=== PATIENT | female | born 1995 | race Asian ===

== ENCOUNTER 2018-04-04 11:15 | Emergency (ER) | payer MEDICAID ==
[~2018-04-04] VITALS: Ht 152.4 cm; Wt 105.3 kg
[2018-04-04 12:13] LABS: ALANINE AMINOTRANSFERASE 30 U/L (12-78); ALBUMIN 3.8 G/DL (3.4-5.0); ALBUMIN/GLOBULIN RATIO 0.8 (1.1-1.5); ALKALINE PHOSPHATASE 95 IU/L (20-180); ANION GAP 10 (8-16); BILIRUBIN,TOTAL 0.6 MG/DL (0.1-1.0); BLOOD UREA NITROGEN 10 MG/DL (7-18); BUN/CREATININE RATIO 12.2 (6.6-38.0); CALCIUM 9.5 MG/DL (8.5-10.1); CHLORIDE 105 MMOL/L (99-107); CREATININE 0.82 MG/DL (0.40-0.90); GLUCOSE 93 MG/DL (70-104); SODIUM 141 MMOL/L (135-145); TOTAL CARBON DIOXIDE 26.4 MMOL/L (24-32); TOTAL PROTEIN 8.5 G/DL (6.4-8.2); eGFR 89 ML/MIN
[2018-04-04 12:22] LABS: ETHANOL < 0.010 GM/DL (0.0-0.010)
[2018-04-04 12:30] LABS: ASPARTATE AMINO TRANSFERASE 31 U/L (10-37); POTASSIUM 4.5 MMOL/L (3.5-5.1)
[2018-04-04 13:12] LABS: BASOPHILS % (AUTO) 0.1 % (0-1); EOSINOPHILS # (AUTO) 0.1 X10'3 (0-0.9); EOSINOPHILS % (AUTO) 1.3 % (0-6); HEMATOCRIT 42.4 % (35.0-45.0); HEMOGLOBIN 14.1 g/dl (12.0-16.0); LYMPHOCYTES # (AUTO) 2.3 X10'3 (1.1-4.8); LYMPHOCYTES % (AUTO) 24.3 % (21-51); MEAN CORPUSCULAR HEMOGLOBIN 29.2 PG (27.0-31.0); MEAN CORPUSCULAR HGB CONC 33.3 % (33.0-36.5); MEAN CORPUSCULAR VOLUME 87.7 FL (78-98); MEAN PLATELET VOLUME 7.7 FL (7.4-10.4); MONOCYTES # (AUTO) 0.3 X10'3 (0-0.9); MONOCYTES % (AUTO) 3.6 % (2-12); NEUTROPHILS # (AUTO) 6.6 X10'3 (1.8-7.7); NEUTROPHILS % (AUTO) 70.7 % (42-75); PLATELET COUNT 370 X10'3 (140-440); RED BLOOD COUNT 4.83 X10'6 (4.20-5.60); RED CELL DISTRIBUTION WIDTH 13.6 % (11.5-14.5); WHITE BLOOD COUNT 9.3 X10'3 (4.5-11.0)
[2018-04-04 16:07] LABS: URINE HCG NEGATIVE (NEG)
[2018-04-04 16:22] LABS: URINE AMPHETAMINE SCREEN NEGATIVE (Neg); URINE BARBITUATE SCREEN NEGATIVE (Neg); URINE BENZODIAZEPINES SCREEN NEGATIVE (Neg); URINE CANNABINOID SCREEN POSITIVE (Neg); URINE COCAINE SCREEN NEGATIVE (Neg); URINE METHADONE SCREEN NEGATIVE (Neg); URINE OPIATE SCREEN NEGATIVE (Neg); URINE PHENCYCLIDINE SCREEN NEGATIVE (Neg)
[2018-04-04 16:27] LABS: CLARITY,URINE SLIGHTLY CLOUDY (Clear); COLOR,URINE YELLOW (Yellow); GLUCOSE, URINE NEGATIVE (Neg); KETONES,URINE TRACE mg/dl (Neg); LEUKOCYTE ESTERASE ,URINE NEGATIVE (Neg); NITRITES, URINE NEGATIVE (Neg); OCCULT BLOOD,URINE NEGATIVE (Neg); PROTEIN,URINE NEGATIVE (Neg); UROBILINOGEN,URINE 0.2 E.U/dL (0.2-1.0)
[2018-04-04 16:38] LABS: UA COLLECTION TYPE CLN CATCH MIDSTREAM
[2018-04-04 16:48] LABS: BACTERIA,URINE 2+ /HPF (Neg); MUCUS STRANDS FEW /LPF (Neg); RBC,URINE NONE SEEN /HPF (0-2); SQUAMOUS EPITHELIAL CELL,UR MANY /LPF (FEW)
[2018-04-04] MEDS ORDERED: ARIP5TAB4 PO (19:10)
[2018-04-04] MEDS ORDERED: PROP10TA10 PO (19:10)
[2018-04-04] MEDS ORDERED: DESV50TA PO (19:11)
[2018-04-04] MEDS ORDERED: AVIANE PO (19:12)
[2018-04-04] MEDS ORDERED: METF500T PO (19:12)
[2018-04-04] MEDS: propranolol 10mg tablet PO SCH (21:00)
[2018-04-04] MEDS: aripiprazole 5mg tablet PO SCH (21:00)
[2018-04-04] MEDS: venlafaxine 25mg tablet PO SCH (21:24)
[2018-04-05] MEDS ORDERED: metFORMIN 500mg tablet PO SCH (08:00)
[2018-04-05] MEDS: LEVONORGESTREL PO SCH ×2 (08:00→14:38)
[2018-04-05] MEDS: ETHINYL ESTRADIOL PO SCH ×2 (08:00→14:38)
[2018-04-05] MEDS: venlafaxine 25mg tablet PO SCH ×2 (09:23→20:12)
[2018-04-05] MEDS: propranolol 10mg tablet PO SCH ×2 (09:23→20:12)
[2018-04-05] MEDS: aripiprazole 5mg tablet PO SCH (20:12)
[2018-04-05 22:23] VITALS: BP 120/85
== END 2018-04-05 22:26 ==
LOC: ER 11:16
DX: F32.9 Major depressive disorder, single episode, unspecified (principal); F25.9 Schizoaffective disorder, unspecified; R45.851 Suicidal ideations; E11.9 Type 2 diabetes mellitus without complications; F12.90 Cannabis use, unspecified, uncomplicated; Z79.84 Long term (current) use of oral hypoglycemic drugs; Z79.899 Other long term (current) drug therapy
CPT/HCPCS: 36415; 80053; 80305; 80320; 81001; 81025; 82948; 84443; 85025; 99285